=== PATIENT | male | born 1945 | race American Indian/Alaskan Native ===

== ENCOUNTER 2018-07-21 00:42 | Emergency (ER) | payer MEDICARE ==
[2018-07-21 00:52] VITALS: O2SAT 98
--- NOTE | 2018-07-21 00:59 | C.PDOC ---
History Of Present Illness Patient presents to the ER via EMS after [place]. Patient went to [place] for a 's affair but the event did not take place and he does not remember how the get home. Patient is well kept, he is aaox2, not sure of time, states he wants to go home, lives alone. Patient does not appear to be in any distress and has no evidence of trauma. Denies physical complaints at this time. Time Seen by Provider: 07/21/18 00:58 Chief Complaint (Nursing): Medical Clearance History Per: Patient, EMS History/Exam Limitations: no limitations Onset/Duration Of Symptoms: Hrs Current Symptoms Are (Timing): Still Present Severity: None Pain Scale Rating Of: 0 Recent travel outside of the [place]: No Past Medical History Reviewed: Historical Data, Nursing Documentation, Vital Signs Vital Signs: Last Vital Signs Temp 98.6 F 07/21/18 00:51 Pulse 72 07/21/18 00:51 Resp 16 07/21/18 00:51 BP 130/70 07/21/18 00:51 Pulse Ox 98 07/21/18 00:51 Family History: States: No Known Family Hx Review Of Systems Constitutional: Negative for: Fever, Chills Cardiovascular: Negative for: Chest Pain, Palpitations Respiratory: Negative for: Cough, Shortness of Breath Gastrointestinal: Negative for: Nausea, Vomiting Neurological: Negative for: Weakness, Numbness Physical Exam - Physical Exam Appears: Non-toxic, Other (Well kept, no evidence of injury or trauma) Skin: Warm, Dry Head: Normacephalic Oral Mucosa: Moist Chest: Symmetrical, No Tenderness Cardiovascular: Rhythm Regular Respiratory: No Rales, No Rhonchi, No Wheezing Gastrointestinal/Abdominal: Soft, No Tenderness Neurological/Psych: Other (Awake, alert, orientedx2) ED Course And Treatment O2 Sat by Pulse Oximetry: 98 (Room air) Pulse Ox Interpretation: Normal Disposition Counseled Patient/Family Regarding: Studies Performed, Diagnosis - Disposition Disposition Time: 00:59 Condition: FAIR Forms: [facility] (Nepali) - Clinical Impression Clinical Impression: Medical assessment - Scribe Statement The provider has reviewed the documentation as recorded by the Scribe Lang Narvaez All medical record entries made by the Scribe were at my direction and personally dictated by me. I have reviewed the chart and agree that the record accurately reflects my personal performance of the history, physical exam, medical decision making, and the department course for this patient. I have also personally directed, reviewed, and agree with the discharge instructions and disposition. Physician Patient Turnover Patient Signed Over To: Neli Goldstein Handoff Comments: pending social sciences lecturer and dispostion
[2018-07-21 06:10] VITALS: RESP 18; TEMP 98
[2018-07-21 09:39] VITALS: PULSE 78
[2018-07-21 17:23] VITALS: BP 116/73
== END 2018-07-21 17:23 | disposition home or self-care (01) ==
LOC: C.ER 00:42
DX: Z00.00 Encounter for general adult medical examination without abnormal findings (principal)